=== PATIENT | male | born 1970 | race Caucasian/White ===

== ENCOUNTER 2016-02-13 23:02 | Emergency (ER) | payer SELFPAY ==
[2016-02-13 23:03] VITALS: BMI 23.3
[2016-02-13 23:12] VITALS: TEMP 97.9
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
[2016-02-14] MEDS ORDERED: PENICILLIN IM ONE (01:33)
[2016-02-14 02:16] VITALS: BP 133/71; PULSE 98
== END 2016-02-14 02:11 | disposition home or self-care (01) ==
LOC: ED 23:02
DX: S09.90XA Unspecified injury of head, initial encounter (principal); S00.211A Abrasion of right eyelid and periocular area, initial encounter; Y04.2XXA Assault by strike against or bumped into by another person, initial encounter; K04.7 Periapical abscess without sinus; F10.129 Alcohol abuse with intoxication, unspecified; F17.200 Nicotine dependence, unspecified, uncomplicated
CPT/HCPCS: 70450; 70486; 82962; 96372; 99283; J0561

== ENCOUNTER 2016-02-17 20:25 | Emergency (ER) | payer SELFPAY ==
[2016-02-17 20:25] VITALS: BMI 23.3
== END 2016-02-17 21:58 | disposition left against medical advice (07) ==
LOC: ED 20:25
DX: Z53.21 Procedure and treatment not carried out due to patient leaving prior to being seen by health care provider (principal)